=== PATIENT | male | born 1990 ===

== ENCOUNTER → 2021-10-09 08:00 | Outpatient (CLI) | payer OTHER | END | disposition home or self-care (01) | LOC: ADM 07:15 → LAB 08:00 → CIR.AMB 10-10 07:00 → EDSTATUS 10-10 07:15 | PROVIDERS: ATTEND Surgery | DX: R22.1 Localized swelling, mass and lump, neck (principal); Z01.811 Encounter for preprocedural respiratory examination ==

== ENCOUNTER 2021-11-21 05:55 | Day surgery (SDC) | payer OTHER | END 2021-11-21 10:50 | disposition home or self-care (01) | LOC: CIR.AMB 05:55 | PROVIDERS: ATTEND Surgery | DX: D17.0 Benign lipomatous neoplasm of skin and subcutaneous tissue of head, face and neck (principal); E66.9 Obesity, unspecified ==